=== PATIENT | female | born 1970 | race Caucasian/White ===

== ENCOUNTER 2024-11-29 14:50 | Emergency (ER) | payer OTHER ==
[~2024-11-29] VITALS: Ht 160 cm; Wt 76.0 kg
[2024-11-29 15:08] LABS: BASOPHILS 0.6 % (0-2); EOSINOPHILS 3.6 % (0-6); HEMATOCRIT 41.9 % (35.0-50.0); HEMOGLOBIN 14.7 g/dL (12.0-18.0); LYMPHOCYTES 42.3 % (24-44); MCH 29.2 (27-36); MCV 83.3 fl (81-99); MONOCYTES 7.3 % (0-12); NEUTROPHILS 46.2 % (39-80); PLATELET COUNT 356 K/uL (140-440); RBC 5.03 M/ul (4.3-5.7); RDW 13.3 (10.5-15.0)
[2024-11-29] MEDS ORDERED: NITROGLYCERIN 0.4 MG SUBL SL PRN (15:15)
[2024-11-29 15:20] LABS: ALBUMIN 4.1 g/dL (3.4-5.0); ALBUMIN/GLOBULIN RATIO 1.11 (1.1-2.4); ALKALINE PHOSPHATASE 78 U/L (46-116); ALT (SGPT) 27 U/L (14-59); ANION GAP 10.8 (7-21); AST (SGOT) 14 U/L (15-37); BILIRUBIN, TOTAL 0.3 mg/dL (0.2-1.0); BUN/CREATININE RATIO 12.79 (6.0-28.6); CARBON DIOXIDE 27 mmol/L (21-32); CHLORIDE 102 mmol/L (98-107); CREATININE, SERUM 0.86 mg/dL (0.55-1.02); GLOMERULAR FILTRATION RATE,EST 80 mL/min (>60); POTASSIUM 3.8 mmol/L (3.5-5.1); PROTEIN, TOTAL 7.8 g/dL (6.4-8.2); UREA NITROGEN 11 mg/dL (7-18)
[2024-11-29] MEDS ORDERED: LABETALOL HCL 20 MG/4 ML VIAL IV ONE (15:30)
[2024-11-29] MEDS ORDERED: PAROXETINE HCL10 MG PO (16:09)
[2024-11-29] MEDS ORDERED: BUPROPION XL300 MG PO (16:10)
[2024-11-29] MEDS ORDERED: COZAAR50 MG PO (18:50)
[2024-11-29] MEDS ORDERED: LOSARTAN POTASSIUM 50 MG TAB PO ONE (19:00)
[2024-11-29 19:24] VITALS: BP 188/123
--- NOTE | 2024-11-30 13:05 | EKG ---
[facility] [address] [facility] [place], [place] [address] Signed Normal sinus rhythm Left axis deviation Possible Inferior infarct , age undetermined Anterolateral infarct , age undetermined Abnormal ECG No previous ECGs available Confirmed by Anthony Brown DO ([id number]) on 11/30/2024 1:05:24 PM Electronically Signed By: ANTHONY BROWN DO 11/30/24 1305 PATIENT NAME: MING CLEMENTESE JACOB FRASER Electrocardiogram DATE OF : 68 PHYSICIAN: ANTHONY BROWN DO REPORT #: [id number] REPORT IS CONFIDENTIAL AND NOT TO BE RELEASED WITHOUT AUTHORIZATION
== END 2024-11-29 19:11 | disposition home or self-care (01) ==
LOC: ED 14:50
PROVIDERS: Emergency Medicine
DX: I10 Essential (primary) hypertension (principal); R07.9 Chest pain, unspecified
CPT/HCPCS: 36415; 71045; 80053; 83735; 84484; 85025; 93005; 93010; 99285-25